=== PATIENT | female | born 1990 | race Caucasian/White ===

== ENCOUNTER 2018-07-11 14:38 | Outpatient (CLI) | payer OTHER ==
--- NOTE | 2018-07-11 15:02 | RAD ---
Comparison: 2 views abdomen HISTORY: Nonspecific abdominal pain. COMPARISON: none FINDINGS: There are mildly prominent air-filled small bowel loops in the left hemiabdomen. No differe ntial air-fluid levels. No pneumoperitoneum. No suspicious densities in the abdomen or pelvis. Distended urinary bladder suspected IMPRESSION: Mildly prominent small bowel loops the left hemiabdomen. Better interrogation with CT is recommended.
== END 2018-07-11 14:39 | disposition home or self-care (01) ==
LOC: BICRAD 14:38
PROVIDERS: ATTEND Family Medicine
DX: R10.9 Unspecified abdominal pain (principal)
CPT/HCPCS: 74019